=== PATIENT | female | born 1975 | race Caucasian/White ===

== ENCOUNTER 2024-02-05 13:42 | Outpatient (CLI) | payer SELFPAY ==
[2024-02-07 02:48] LABS: FSH 10.1 mIU/mL
== END 2024-02-05 13:43 | disposition home or self-care (01) ==
PROVIDERS: PCP Obstetrics & Gynecology; Visit Provider Obstetrics & Gynecology
DX: N95.1 Menopausal and female climacteric states (principal)
CPT/HCPCS: 36415; 83001

== ENCOUNTER 2024-08-12 15:46 | Outpatient (CLI) | payer BC, SELFPAY ==
--- NOTE | ~2024-08-12 | XR_ITS ---
CHEST RADIOGRAPH, PA AND LATERAL CLINICAL HISTORY: cough x two weeks, fever in the beginning . COMPARISON: None available TECHNIQUE: PA and lateral views of the chest. FINDINGS The cardiomediastinal silhouette is unremarkable. The lungs are clear. Visualized osseous structures and soft tissues are unremarkable. IMPRESSION: No focal infiltrate or effusion. Reviewed, dictated and finalized at location A.
--- OUTSIDE RECORDS SUMMARY | 2024-08-12 17:48 | XMS_ITS | Clinical Summary ---
Author Organization [facility] Care Team Providers Care Addiction Therapist Name Role Phone Unavailable Primary Care Provider Unavailabl e Social History Tobacco Use Types Packs/Day Years Used Date Smoking Tobacco: Never Assessed Comments Unknown Sex and Gender Information Value Date Recorded Sex Assigned at Not on file Legal Sex Female 9:54 AM CDT Gender Identity Not on file Sexual Orientation Not on file Plan of Treatment Health Maintenance Due Date Last Done Comments Hepatitis C Virus (HCV) Screening 1975 TdaP Immunization 1975 Hepatitis B Immunization (1 of 3 - 19+ 3-dose series) 12/10/1994 Pap Smear 12/10/1996 Cervical Cancer Screening (CCS) 12/10/2005 HPV/Cotest 12/10/2005 Discussion re Starting/Frequ ency of Mammograms 2015 Colonoscopy 12/10/2020 Colorectal Cancer Screening 12/10/2020 Influenza Immunization (#1) 2023 SARS-COV-2 Immunization ( season) 2023 Respiratory Syncytial Virus (RSV) Immunization (Adult) (1 - 1-dose 75+ series) 12/10/2050 Meningococcal Immunization (ACWY) Aged Out No longer eligible based on patient's age to complete this topic Pneumococcal Immunization Combined Aged Out No longer eligible based on patient's age to complete this topic Rotavirus Immunization Aged Out No lo nger eligible based on patient's age to complete this topic
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
--- OUTSIDE RECORDS SUMMARY | 2024-08-12 17:48 | XMS_ITS | Encounter Summary ---
Author Organization [facility] Healthcare Address [address] [place] [address] Care Team Providers Care Associate Professor Of Psychology Name Role Phone Rafa Estes MD Primary Care Provider [phone] Melissa Salazar OD Unavailable [phone] Encounter Details Date Type Department Care Team (Late st Contact Info) Description 07/14/2020 Telephone [facility] Radiology [address] [place] [address] Gabriela Bashir MD [address] [id number] Social History Tobacco Use Types Packs/Day Years Used Date Smoking Tobacco: Former Cigarettes 1 5 1 995 - 1999 Comments Unknown Sex and Gender Information Value Date Recorded Sex Assigned at Not on file Legal Sex Female 12:57 PM SECURITIES VAULT SUPERVISOR Gender Identity Not on file Sexual Orientation Not on file 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
== END 2024-08-12 15:47 | disposition home or self-care (01) ==
LOC: ANHLAB 15:49
PROVIDERS: Visit Provider Obstetrics & Gynecology
DX: R05.3 Chronic cough (principal); J06.9 Acute upper respiratory infection, unspecified
CPT/HCPCS: 71046

== ENCOUNTER 2024-08-22 01:42 | Day surgery (SDC) | payer BC, SELFPAY ==
--- NOTE | 2024-08-18 08:12 | PC.NURSE ---
Report to the Outpatient Waiting Room, entrance under the green pavilion located off [facility], at time _0600_ on date _[id number]_. Planned Procedure Time: _0730_.? Time changes happen often and if your time is changed the preop area will call you the afternoon before. - You and your visitor will be asked to self-screen and do not enter if you have any COVID symptoms. Please call surgeon if you need to reschedule. - A mask is optional within the hospital at this time. Patients may have clear liquids (water, carbonated beverages, clear teas, apple juice) until 3 hours prior to surgery with a maximum of 20 ounces. - No food from midnight until time of surgery and no smoking, or chewing tobacco (or any form of nicotine). No chewing gum, candy or mints. Take only the following medications with a SIP of water on the morning of surgery: __None___ DO NOT STOP ANY OF YOUR OTHER PRESCRIPTION MEDICATIONS PRIOR TO SURGERY EXCEPT THE FOLLOWING Hold all vitamins and supplements for 3 days per anesthesiologist. Medications to discontinue per physician Date to take last groj___[phone]___ Please no make-up, nail hungarian, hairspray, perfume, deodorant, or body powder the day of surgery.? No jewelry (including any body piercings) or valuables the day of surgery, leave them at home.? Please take a shower or bath the night before, or the morning of, surgery with an antibacterial soap.? Wear comfortable, loose fitting clothing. - Jewelry must be removed prior to entering the operating room.? Rings and piercings that are not removed may be cut off. - The hospital will not accept responsibility for valuables.? - Please leave all valuables, including medications, at home the day of surgery. If you are going home after surgery, a licensed sweeper driver must drive you home.? - NO public transportation without another adult if you receive anesthesia. - We recommend that an adult stay with you for 24 hours following discharge. - We also recommend that you do not drive, make important decision, drink alcoholic beverages, or take any drugs that were not prescribed by your health care provider for at least 24 hours after your discharge time. Follow any additional instructions given to you from your surgeon. Telephone instructions given to __Irene__and asked if any additional questions and then verbalized understanding. Patient advised to call surgeon office or pre surgery nurse liaison [phone] if any additional questions.
[2024-08-18 08:20] VITALS: BMI 30.8
[2024-08-22] VITALS (8 sets, daily range): BP systolic 120–138; BP diastolic 77–85; PULSE 66–93; RESP 14–20; TEMP 36.2–36.4; O2SAT 96–100
--- OUTSIDE RECORDS SUMMARY | 2024-08-22 01:44 | XMS_ITS | Referral Summary ---
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 Not on file Not on file Last Filed Vital Signs Vital Sign Reading Time Taken Comments Blood Pressure 126/75 06/29/2020 2:49 PM COAL TRAM DRIVER Pulse 82 06/29/2020 2:49 PM COAL TRAM DRIVER Temperature 37.3 C (99.2 F) 06/29/2020 2:49 PM COAL TRAM DRIVER Respiratory Rate 18 06/29/2020 2:49 PM COAL TRAM DRIVER Oxygen Saturation 98% 04/28/2020 10: 57 AM COAL TRAM DRIVER Inhaled Oxygen Concentration - - Weight 90.7 kg (200 lb) 07/15/2020 10:3 0 AM CDT pt reported weight Height 175.3 cm (5' 9 ) 07/15/2020 10:3 0 AM CDT Body Mass Index 29.53 07/15/2020 10:30 AM CDT Plan of Treatment Not on file Care Teams Lieutenant Governor Relationship Specialty Start Date End Date Rafa Estes MD [address] [facility] [address] [place] [address] PCP - General Obstetrics and Gynecology 05/06/20 Melissa Salazar OD [address] [place] [address] Primary Eye Care Provider Optometry 06/22/20
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
--- OUTSIDE RECORDS SUMMARY | 2024-08-22 01:44 | XMS_ITS | Encounter Summary ---
Author Organization [facility] Healthcare Address [address] [place] [address] Care Team Providers Care Analysis Director Name Role Phone Rafa Estes MD Primary Care Provider [phone] Melissa Salazar OD Unavailable [phone] Encounter Details Date Type Department Care Team (Late st Contact Info) Description 07/14/2020 Telephone Radiology [address] [place] [address] Gabriela Bashir MD [address] [id number] Social History Tobacco Use Types Packs/Day Years Used Date Smoking Tobacco: Former Cigarettes 1 5 1 995 - 1999 Comments Unknown Sex and Gender Information Value Date Recorded Sex Assigned at Not on file Legal Sex Female 12:57 PM ARTIST SCIENTIFIC Gender Identity Not on file Sexual Orientation Not on file 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
--- OUTSIDE RECORDS SUMMARY | 2024-08-22 01:44 | XMS_ITS | Clinical Summary ---
Author Organization [facility] Care Team Providers Care Linen Room Houseperson Name Role Phone Unavailable Primary Care Provider [...]
--- NOTE | 2024-08-22 06:51 | P.PNAN_ITS ---
Anes - Initial Pre Proc Eval Procedure: Operation Date: 08/22/24 07:30 Proposed Procedures p Hysteroscopy with Removal of Intrauterine Device, - Rafa Estes MD s Laparoscopic Bilateral Salpingectomy - Rafa Estes MD Date/Time: 08/22/24 06:51 Surgeon: Rafa Estes MD Pre Op Diagnosis: displaced iud, desires sterilization Patient Data Age: 48 Gender: F Height: 1.75 m Weight: 94.7 kg Allergies Allergy/AdvReac Type Severity Reaction Status Date / Time clavulanic acid Allergy Mild Nausea and Verified 08/18/24 08:19 Vomiting amoxicillin Allergy Unknown Unknown Verified 08/18/24 08:19 clindamycin Allergy Unknown Unknown Verified 08/18/24 08:19 Home Medications ?Medication ?Instructions ?Recorded ?Confirmed ?Type levonorgestrel 14 mcg/24 hr (up to 1 device intrauterine ONCE 07/10/19 08/18/24 History 3 yrs) 13.5 mg intrauterine device (Gina) multivitamin (Daily Multi-Vitamin 1 tablet PO DAILY 01/08/24 08/18/24 History tablet) albuterol sulfate 90 mcg/actuation 2 puff inhalation Q4H PRN 08/14/24 08/18/24 Rx aerosol inhaler shortness of breath or wheezing #8.5 grams Patient hx anesthesia problems: none Family hx anesthesia problems: none Results Review: All pre-operative results and documents have been reviewed as part of the pre- operative evaluation. [facility] Surgical History Surgical History History of abdominoplasty History of mandibular surgery H/O section Family History Family History Mother Hypertension Father Family history of type 2 diabetes mellitus Social History Social History Smoking status: Never smoker Alcohol intake: never Anes - Eval Final PreProcedure Day of Procedure 08/22/24 06:51 Patient weight: obese Heart: regular rate and rhythm Lungs: clear to auscultation Airway: Mallampati scale class II Neurological: alert and oriented Last oral intake: >/= 8 hours ASA classification: II Emergent: no Anesthetic plan: proceed Anesthesia type and monitoring: general ETT and standard monitoring Results Review: All pre-operative results and documents have been reviewed as part of the pre- operative evaluation. Informed Consent: The patient's anesthetic plan and its attendant risks and benefits were discussed with the patient/family/POA. Questions were solicited and answers provided to the satisfaction of the patient/family/POA.
[2024-08-22] MEDS: KETOROLAC 15 MG/ML VIAL (*BKC) IV PUSH (07:15)
[2024-08-22] MEDS: LACTATED RINGERS 1,000 ML 30 ML IV CONT ×2 (07:15→08:35)
[2024-08-22] MEDS: ACETAMINOPHEN 500 MG TABLET 1000 MG PO (07:15)
--- NOTE | 2024-08-22 07:25 | WPDHPUPDATE1 ---
History and Physical Update Update Date/Time: 08/22/24 07:25 History and Physical has been reviewed, including an updated exam of the patient. There are NO changes in the patient's condition. Risks, benefits, and alternatives have been discussed and questions answered. Patient agrees to proceed with procedure.
[2024-08-22] MEDS: ceFAZolin 2 GM/D5W 50 ML 2 GM/50 ML BAG IVPB (07:35)
[2024-08-22 08:04] LABS: BEDSIDEPREGUCG Negative (Negative)
[2024-08-22] MEDS: BUPivacaine HCL 0.5% PF 30 ML VIAL INFILTRATE (08:05)
--- NOTE | 2024-08-22 08:28 | W.PM.PROC2 ---
Procedure Note - Detailed Date of Procedure 08/22/24 Pre-op Diagnosis displaced iud, desires sterilization Post-op Diagnosis Same Procedure Performed 1. Laparoscopic bilateral salpingectomy 2. Hysteroscopic removal of IUD Surgeon Rafa Estes MD Database Technician Aravind Kerr Anesthesia General Indications IUD unable to remove in office and undesired fertility. Findings Normal uterus or fallopian tubes and ovaries bilateral the distal portion of the IUD was slightly embedded in the upper cervical tissue on the left, IUD removed intact Description of Procedure After informed consent was obtained patient was taken to the operating room and general endotracheal anesthesia was administered. She was placed in low lithotomy need prep prepped sterile fashion. The bladder was drained of 30 cc of yellow urine. Attention was turned to the vagina speculum inserted single-tooth tenaculum placed on anterior lip of the cervix. [place] uterine manipulator placed into the cervical canal. The speculum was removed. Attention was then turned to the abdomen. A vertical incision was made at the umbilicus and a Veress needle was inserted into the abdomen confirmation into the abdomen obtained with free flow of fluid and normal peritoneal pressures. A pneumoperitoneum of 15 mm per mercury was obtained. The 5 mm port was inserted under laparoscopic visualization. Patient was placed in Trendelenburg position. Attention was turned to the left side of the abdomen and a 5 mm port was inserted under laparoscopic visualization. The pelvic organs were visualized. Using the LigaSure the right fallopian tube was excised to near the entrance to the uterus using the LigaSure. This was removed through the port. Attention was then turned to the left fallopian tube which was grabbed at the distal end and cauterized from the mesial salpinx to within a cm of the entrance to the entrance to the uterus. The fallopian tube was removed through the 5 mm port. Hemostasis was noted at both sites. Patient was taken out of Trendelenburg position the pneumoperitoneum was released and the ports were removed. The skin incisions were closed in a subcuticular fashion with 4 O Vicryl. Attention was turned to the vagina. Speculum was inserted. The acorn uterine manipulator was removed. The cervix was dilated to an 6 Barone dilator. The hysteroscope was inserted into the cavity. The findings showing distal IUD deviated and mildly embedded in mid left cervical wall. The grasper was used and the IUD was removed intact. The hysteroscope was removed. Sponge count correct. The patient taken to recovery in stable condition. Estimated Blood Loss 10 Drains No Packing No Pathology Yes ( right and left fallopian tube) Complications No immediate complications Condition Stable Disposition PACU
[2024-08-22] MEDS: oxyCODONE HCL (*CRX) 5 MG TAB IR PO (09:38)
== END 2024-08-22 10:25 | disposition home or self-care (01) ==
PROVIDERS: Visit Provider Obstetrics & Gynecology
PROC: 0U5B8ZZ Destruction of Endometrium, Via Natural or Artificial Opening Endoscopic (ICD-10-PCS; CPT 58563; principal; 2024-08-22 07:30)
PROC: (CPT 49320; 2024-08-22 07:30)
DX: Z30.2 Encounter for sterilization (principal); T83.32XA Displacement of intrauterine contraceptive device, initial encounter; N83.8 Other noninflammatory disorders of ovary, fallopian tube and broad ligament; G89.18 Other acute postprocedural pain; Y83.8 Other surgical procedures as the cause of abnormal reaction of the patient, or of later complication, without mention of misadventure at the time of the procedure; E66.9 Obesity, unspecified; Z68.32 Body mass index [BMI] 32.0-32.9, adult; Z98.890 Other specified postprocedural states; Z79.51 Long term (current) use of inhaled steroids
CPT/HCPCS: 58661; 58562; 88302; A9270; J0690; J1100; J1885; J2003; J2250; J2405; J2704; J3010; J7120